=== PATIENT | male | born 1975 | race Caucasian/White ===

== ENCOUNTER 2019-04-09 20:55 | Emergency (ER) | payer OTHER ==
[~2019-04-09] VITALS: Ht 175.3 cm; Wt 68.0 kg
[~2019-04-09 20:55] MED LIST: ACET325 PO; ACET500 PO; ACID REDUCER 1150 MG; AMOX500 PO; Amoxicillin500 MG PO; CEPH500 PO; CLAR500 PO; CRUTCH4 UD; CYCL10 PO; DIAZ10 PO; Desyrel50 MG; GABA100; HYDACE10 PO; HYDACE10B; HYDACE10B PO; HYDACE5 PO; HYDACE5325 PO; HYDACE7.5 PO; HYDMOR2 PO; HYDPAM50 PO; HYDR1TAB94 PO; IBUP100S; IBUP600 PO; KETO10 PO; LORA2 PO; META800 PO; NAPR500 PO; Norco 5-325 Ta1 EACH PO; OMEP40CA12 PO; ONDA4ODT MM; OXYACE5T PO; PENVK500 PO; PRED20 PO; PROACE100 PO; PROC10 PO; PROM25 PO; PROM25S PR; Pepcid40 MG PO; TOBDEXOPO OP; TOBR.3OPSO OP; TRAM50 PO; Zofran Odt4 MG SL; Zofran Odt8 MG SL
[2019-04-09 21:50] LABS: BASOPHILS ABSOLUTE AUTO 0.05 K/mm3 (0.00-0.23); BASOPHILS PERCENT AUTO 0 % (0-2); EOSINOPHILS ABSOLUTE AUTO 0.06 K/mm3 (0.00-0.68); EOSINOPHILS PERCENT AUTO 0 % (0-6); Hematocrit 52.4 % (37.0-53.0); Hemoglobin 17.8 g/dL (13.5-17.5); IMMATURE GRAN ABSOLUTE AUTO 0.05 K/mm3 (0.00-0.10); IMMATURE GRAN PERCENT AUTO 0 % (0-1); LYMPHOCYTES ABSOLUTE AUTO 2.32 K/mm3 (0.84-5.20); LYMPHOCYTES PERCENT AUTO 14 % (21-46); MONOCYTES ABSOLUTE AUTO 0.82 K/mm3 (0.16-1.47); MONOCYTES PERCENT AUTO 5 % (4-13); Mean Corpuscular HGB 31.2 pg (26.0-34.0); Mean Corpuscular Volume 92 fL (80-100); Mean Platelet Volume 9.5 fL (9.1-12.4); NEUTROPHILS ABSOLUTE AUTO 13.43 K/mm3 (1.96-9.15); NEUTROPHILS PERCENT AUTO 80 % (41-73); Platelet Count 409 K/mm3 (150-400); RDW Coefficient Variation 13.1 % (11.7-14.2); RDW Standard Deviation 44.4 fL (35.1-46.3); White Blood Cell Count 16.73 K/mm3 (4.00-11.30)
[2019-04-09 22:12] LABS: Alanine Aminotransfer (ALT/SGP 37 U/L (12-78); Albumin, Blood 4.3 g/dL (3.4-5.0); Albumin/Globulin Ratio 1.2 (0.8-1.8); Alk Phos 95 U/L (50-136); Anion Gap 6 mmol/L (6-16); Aspartate Aminotrans (AST/SGOT 26 U/L (12-37); Bilirubin, Total 0.7 mg/dL (0.1-1.0); Blood Urea Nitrogen 13 mg/dL (8-24); Bun/Creatinine Ratio 14.4 (12.0-20.0); CO2, Blood 33 mmol/L (21-32); Calcium, Blood 9.9 mg/dL (8.5-10.1); Chloride, Blood 100 mmol/L (98-108); Globulin, Blood 3.6 g/dL (2.2-4.0); Glomerular Filtration Rate >60 (60-); Glucose, Blood 111 mg/dL (70-99); Potassium, Blood 3.6 mmol/L (3.5-5.5); Sodium, Blood 139 mmol/L (136-145); Total Protein, Blood 7.9 g/dL (6.4-8.2)
[2019-04-10] MEDS ORDERED: Carafate1 GM/10 ML PO (04:45)
[2019-04-10] MEDS ORDERED: ONDA4ODT MM (04:45)
[2019-04-10] MEDS ORDERED: Prilosec Otc20 MG PO (04:45)
== END 2019-04-10 06:12 | disposition home or self-care (01) ==
LOC: ER 20:55
PROVIDERS: Physician Assistant
DX: R10.9 Unspecified abdominal pain (principal); R11.2 Nausea with vomiting, unspecified; F17.210 Nicotine dependence, cigarettes, uncomplicated; Z88.6 Allergy status to analgesic agent
CPT/HCPCS: 71046; 74177; 80053; 83690; 85025; 86850; 86900; 86901; 96361-59; 96374-59; 96375-59; 99284-25; C9113; J1200; J2405; J2765; J7030; Q9967

== ENCOUNTER 2019-04-15 09:07 | Emergency (ER) | payer OTHER ==
[~2019-04-15] VITALS: Ht 175.3 cm; Wt 74.8 kg
[~2019-04-15 09:07] MED LIST changes: +Carafate1 GM/10 ML PO; +Prilosec Otc20 MG PO
[2019-04-15 10:27] LABS: Source, Urine Clean Catch
[2019-04-15 10:29] LABS: Appearance, Urine Clear (Clear); Bilirubin, Urine Neg (Neg); Blood, Urine Neg (Neg); Color, Urine Yellow (P-Yellow); Glucose Qualitative, Urine Neg (Neg); Ketones, Urine Neg (Neg); Leukocyte Esterase, Urine Neg (Neg); Nitrite, Urine Neg (Neg); Protein, Urine 1+ (Neg); Urobilinogen, Urine NORM (Normal)
[2019-04-15 11:16] LABS: BASOPHILS ABSOLUTE AUTO 0.07 K/mm3 (0.00-0.23); BASOPHILS PERCENT AUTO 0 % (0-2); EOSINOPHILS ABSOLUTE AUTO 0.13 K/mm3 (0.00-0.68); EOSINOPHILS PERCENT AUTO 1 % (0-6); IMMATURE GRAN ABSOLUTE AUTO 0.04 K/mm3 (0.00-0.10); IMMATURE GRAN PERCENT AUTO 0 % (0-1); LYMPHOCYTES ABSOLUTE AUTO 2.13 K/mm3 (0.84-5.20); LYMPHOCYTES PERCENT AUTO 13 % (21-46); MONOCYTES ABSOLUTE AUTO 0.91 K/mm3 (0.16-1.47); MONOCYTES PERCENT AUTO 6 % (4-13); Mean Corpuscular HGB 30.7 pg (26.0-34.0); Mean Corpuscular Volume 90 fL (80-100); NEUTROPHILS ABSOLUTE AUTO 13.01 K/mm3 (1.96-9.15); NEUTROPHILS PERCENT AUTO 80 % (41-73); Platelet Count 351 K/mm3 (150-400); RDW Coefficient Variation 13.1 % (11.7-14.2); RDW Standard Deviation 43.8 fL (35.1-46.3); Red Blood Cell Count 5.53 M/mm3 (4.30-5.90); White Blood Cell Count 16.29 K/mm3 (4.00-11.30)
[2019-04-15 11:30] LABS: Alanine Aminotransfer (ALT/SGP 43 U/L (12-78); Albumin, Blood 4.1 g/dL (3.4-5.0); Albumin/Globulin Ratio 1.1 (0.8-1.8); Alk Phos 94 U/L (50-136); Anion Gap 3 mmol/L (6-16); Aspartate Aminotrans (AST/SGOT 35 U/L (12-37); Bilirubin, Total 0.7 mg/dL (0.1-1.0); Blood Urea Nitrogen 13 mg/dL (8-24); Bun/Creatinine Ratio 17.8 (12.0-20.0); CO2, Blood 33 mmol/L (21-32); Calcium, Blood 9.7 mg/dL (8.5-10.1); Chloride, Blood 104 mmol/L (98-108); Creatinine, Blood 0.73 mg/dL (0.60-1.20); Globulin, Blood 3.8 g/dL (2.2-4.0); Glomerular Filtration Rate >60 (60-); Glucose, Blood 75 mg/dL (70-99); Potassium, Blood 4.2 mmol/L (3.5-5.5); Sodium, Blood 140 mmol/L (136-145); Total Protein, Blood 7.9 g/dL (6.4-8.2)
== END 2019-04-15 13:00 | disposition home or self-care (01) ==
LOC: ER 09:07
PROVIDERS: Emergency Medicine
DX: K27.9 Peptic ulcer, site unspecified, unspecified as acute or chronic, without hemorrhage or perforation (principal); F17.210 Nicotine dependence, cigarettes, uncomplicated; Z88.5 Allergy status to narcotic agent; Z79.899 Other long term (current) drug therapy
CPT/HCPCS: 36415; 74018; 80053; 83690; 85025; 96361; 96374; 96375; 99284-25; C9113; J1170; J2405; J7120

== ENCOUNTER 2019-10-03 17:19 | Emergency (ER) | payer OTHER ==
[~2019-10-03] VITALS: Ht 175.3 cm; Wt 74.8 kg
[2019-10-03 17:52] LABS: BASOPHILS ABSOLUTE AUTO 0.04 K/mm3 (0.00-0.23); BASOPHILS PERCENT AUTO 0 % (0-2); EOSINOPHILS ABSOLUTE AUTO 0.11 K/mm3 (0.00-0.68); EOSINOPHILS PERCENT AUTO 1 % (0-6); Hematocrit 49.3 % (37.0-53.0); Hemoglobin 16.4 g/dL (13.5-17.5); IMMATURE GRAN ABSOLUTE AUTO 0.01 K/mm3 (0.00-0.10); IMMATURE GRAN PERCENT AUTO 0 % (0-1); LYMPHOCYTES ABSOLUTE AUTO 2.08 K/mm3 (0.84-5.20); LYMPHOCYTES PERCENT AUTO 22 % (21-46); MONOCYTES ABSOLUTE AUTO 0.56 K/mm3 (0.16-1.47); MONOCYTES PERCENT AUTO 6 % (4-13); Mean Corpuscular HGB 30.2 pg (26.0-34.0); Mean Corpuscular HGB Conc 33.3 g/dL (31.5-36.5); Mean Corpuscular Volume 91 fL (80-100); Mean Platelet Volume 9.7 fL (9.1-12.4); NEUTROPHILS ABSOLUTE AUTO 6.62 K/mm3 (1.96-9.15); NEUTROPHILS PERCENT AUTO 70 % (41-73); Platelet Count 338 K/mm3 (150-400); RDW Standard Deviation 43.5 fL (35.1-46.3); Red Blood Cell Count 5.43 M/mm3 (4.30-5.90); White Blood Cell Count 9.42 K/mm3 (4.00-11.30)
[2019-10-03 18:04] LABS: Anion Gap 7 mmol/L (6-16); Blood Urea Nitrogen 12 mg/dL (8-24); Bun/Creatinine Ratio 13.9 (12.0-20.0); CO2, Blood 23 mmol/L (21-32); Calcium, Blood 8.4 mg/dL (8.5-10.1); Chloride, Blood 108 mmol/L (98-108); Creatinine, Blood 0.87 mg/dL (0.60-1.20); Glomerular Filtration Rate >60 (60-); Glucose, Blood 113 mg/dL (70-99); Potassium, Blood 3.4 mmol/L (3.5-5.5); Sodium, Blood 138 mmol/L (136-145); Troponin I <0.015 ng/mL (0.000-0.040)
[2019-10-03] MEDS ORDERED: Ventolin/Prove6.7 GM INH (18:36)
[2019-10-03] MEDS ORDERED: BENZ100A PO (18:36)
[2019-10-03] MEDS ORDERED: Prednisone20 MG PO (18:36)
== END 2019-10-03 19:41 | disposition home or self-care (01) ==
LOC: ER 17:19
PROVIDERS: Physician Assistant
DX: J40 Bronchitis, not specified as acute or chronic (principal); J06.9 Acute upper respiratory infection, unspecified; F17.210 Nicotine dependence, cigarettes, uncomplicated; Z88.5 Allergy status to narcotic agent; Z79.899 Other long term (current) drug therapy
CPT/HCPCS: 36415; 71046; 80048; 84484; 85025; 93005; 93010; 94640; 96374; 99284-25; J2930; J7030; J7512

== ENCOUNTER 2019-10-18 18:25 | Emergency (ER) | payer OTHER ==
[~2019-10-18] VITALS: Ht 175.3 cm; Wt 74.8 kg
[~2019-10-18 18:25] MED LIST changes: +BENZ100A PO; +Prednisone20 MG PO; +Ventolin/Prove6.7 GM INH
[2019-10-18 19:15] LABS: BASOPHILS ABSOLUTE AUTO 0.03 K/mm3 (0.00-0.23); BASOPHILS PERCENT AUTO 0 % (0-2); EOSINOPHILS ABSOLUTE AUTO 0.11 K/mm3 (0.00-0.68); EOSINOPHILS PERCENT AUTO 1 % (0-6); Hematocrit 49.5 % (37.0-53.0); Hemoglobin 16.9 g/dL (13.5-17.5); IMMATURE GRAN ABSOLUTE AUTO 0.07 K/mm3 (0.00-0.10); IMMATURE GRAN PERCENT AUTO 0 % (0-1); LYMPHOCYTES ABSOLUTE AUTO 2.47 K/mm3 (0.84-5.20); LYMPHOCYTES PERCENT AUTO 15 % (21-46); MONOCYTES ABSOLUTE AUTO 0.77 K/mm3 (0.16-1.47); MONOCYTES PERCENT AUTO 5 % (4-13); Mean Corpuscular HGB Conc 34.1 g/dL (31.5-36.5); Mean Corpuscular Volume 91 fL (80-100); Mean Platelet Volume 9.8 fL (9.1-12.4); NEUTROPHILS ABSOLUTE AUTO 12.61 K/mm3 (1.96-9.15); NEUTROPHILS PERCENT AUTO 79 % (41-73); Platelet Count 410 K/mm3 (150-400); RDW Standard Deviation 43.7 fL (35.1-46.3); Red Blood Cell Count 5.45 M/mm3 (4.30-5.90); White Blood Cell Count 16.06 K/mm3 (4.00-11.30)
[2019-10-18 19:40] LABS: Alanine Aminotransfer (ALT/SGP 32 U/L (12-78); Albumin, Blood 3.7 g/dL (3.4-5.0); Albumin/Globulin Ratio 0.9 (0.8-1.8); Alk Phos 91 U/L (50-136); Anion Gap 6 mmol/L (6-16); Aspartate Aminotrans (AST/SGOT 16 U/L (12-37); Bilirubin, Total 0.8 mg/dL (0.1-1.0); Blood Urea Nitrogen 10 mg/dL (8-24); Bun/Creatinine Ratio 13.2 (12.0-20.0); CO2, Blood 26 mmol/L (21-32); Calcium, Blood 9.3 mg/dL (8.5-10.1); Chloride, Blood 106 mmol/L (98-108); Creatinine, Blood 0.76 mg/dL (0.60-1.20); Globulin, Blood 4.1 g/dL (2.2-4.0); Glomerular Filtration Rate >60 (60-); Glucose, Blood 92 mg/dL (70-99); Sodium, Blood 138 mmol/L (136-145); Total Protein, Blood 7.8 g/dL (6.4-8.2)
[2019-10-18 19:50] LABS: Troponin I <0.015 ng/mL (0.000-0.040)
[2019-10-18] MEDS ORDERED: PRED10 PO (21:13)
== END 2019-10-18 21:59 | disposition home or self-care (01) ==
LOC: ER 18:25
PROVIDERS: Physician Assistant
DX: J45.901 Unspecified asthma with (acute) exacerbation (principal); K27.9 Peptic ulcer, site unspecified, unspecified as acute or chronic, without hemorrhage or perforation; F17.210 Nicotine dependence, cigarettes, uncomplicated
CPT/HCPCS: 36415; 71046; 80053; 84484; 85025; 93005; 93010; 94640; 96374-59; 99285-25; J2930

== ENCOUNTER 2020-05-30 16:23 | Emergency (ER) | payer OTHER ==
[~2020-05-30] VITALS: Ht 175.3 cm; Wt 77.1 kg
[~2020-05-30 16:23] MED LIST changes: +PRED10 PO
[2020-05-30] MEDS ORDERED: HYDR1TAB94 PO (18:56)
[2020-05-30] MEDS ORDERED: Colace250 MG PO (18:56)
[2020-05-31] MEDS ORDERED: HYDR1TAB94 PO (09:50)
== END 2020-05-30 19:11 | disposition home or self-care (01) ==
LOC: ER 16:23
DX: S63.501A Unspecified sprain of right wrist, initial encounter (principal); F17.210 Nicotine dependence, cigarettes, uncomplicated; Z79.899 Other long term (current) drug therapy; W20.8XXA Other cause of strike by thrown, projected or falling object, initial encounter
CPT/HCPCS: 29125; 73110; 73120; 99283-25; A9270-GY

== ENCOUNTER 2021-02-25 20:55 | Emergency (ER) | payer OTHER ==
[~2021-02-25] VITALS: Ht 175.3 cm; Wt 77.1 kg
[~2021-02-25 20:55] MED LIST changes: +Colace250 MG PO
[2021-02-25 21:55] LABS: BASOPHILS ABSOLUTE AUTO 0.05 K/mm3 (0.00-0.23); BASOPHILS PERCENT AUTO 1 % (0-2); EOSINOPHILS ABSOLUTE AUTO 0.05 K/mm3 (0.00-0.68); EOSINOPHILS PERCENT AUTO 1 % (0-6); Hematocrit 54.7 % (37.0-53.0); Hemoglobin 18.8 g/dL (13.5-17.5); IMMATURE GRAN ABSOLUTE AUTO 0.01 K/mm3 (0.00-0.10); IMMATURE GRAN PERCENT AUTO 0 % (0-1); LYMPHOCYTES ABSOLUTE AUTO 2.31 K/mm3 (0.84-5.20); LYMPHOCYTES PERCENT AUTO 30 % (21-46); MONOCYTES PERCENT AUTO 10 % (4-13); Mean Corpuscular HGB 30.4 pg (26.0-34.0); Mean Corpuscular HGB Conc 34.4 g/dL (31.5-36.5); Mean Corpuscular Volume 89 fL (80-100); Mean Platelet Volume 9.8 fL (9.1-12.4); NEUTROPHILS ABSOLUTE AUTO 4.45 K/mm3 (1.96-9.15); NEUTROPHILS PERCENT AUTO 58 % (41-73); Platelet Count 304 K/mm3 (150-400); RDW Standard Deviation 42.4 fL (35.1-46.3); Red Blood Cell Count 6.18 M/mm3 (4.30-5.90); White Blood Cell Count 7.67 K/mm3 (4.00-11.30)
[2021-02-25 22:15] LABS: Alanine Aminotransfer (ALT/SGP 36 U/L (12-78); Albumin, Blood 3.7 g/dL (3.4-5.0); Albumin/Globulin Ratio 0.9 (0.8-1.8); Alk Phos 106 U/L (50-136); Anion Gap 4 mmol/L (6-16); Aspartate Aminotrans (AST/SGOT 17 U/L (12-37); Bilirubin, Total 0.3 mg/dL (0.1-1.0); Blood Urea Nitrogen 13 mg/dL (8-24); Bun/Creatinine Ratio 12.3 (12.0-20.0); CO2, Blood 32 mmol/L (21-32); Calcium, Blood 9.1 mg/dL (8.5-10.1); Chloride, Blood 99 mmol/L (98-108); Creatinine, Blood 1.06 mg/dL (0.60-1.20); Globulin, Blood 4.1 g/dL (2.2-4.0); Glomerular Filtration Rate >60 (60-); Glucose, Blood 109 mg/dL (70-99); Potassium, Blood 3.6 mmol/L (3.5-5.5); Sodium, Blood 135 mmol/L (136-145); Total Protein, Blood 7.8 g/dL (6.4-8.2)
[2021-02-25] MEDS ORDERED: Protonix40 MG PO (22:36)
== END 2021-02-25 22:41 | disposition home or self-care (01) ==
LOC: ER 20:55
PROVIDERS: Physician Assistant
DX: R10.13 Epigastric pain (principal); Z88.5 Allergy status to narcotic agent
CPT/HCPCS: 36415; 80053; 83690; 85025; 96374; 99284-25; A9270; C9113

== ENCOUNTER 2022-01-16 15:34 | Emergency (ER) | payer OTHER ==
[~2022-01-16] VITALS: Ht 180.3 cm; Wt 77.1 kg
[~2022-01-16 15:34] MED LIST changes: +Protonix40 MG PO
[2022-01-16 16:11] LABS: BASOPHILS ABSOLUTE AUTO 0.07 K/mm3 (0.00-0.23); BASOPHILS PERCENT AUTO 1 % (0-2); EOSINOPHILS ABSOLUTE AUTO 0.14 K/mm3 (0.00-0.68); EOSINOPHILS PERCENT AUTO 1 % (0-6); Hematocrit 50.5 % (37.0-53.0); Hemoglobin 16.9 g/dL (13.5-17.5); IMMATURE GRAN ABSOLUTE AUTO 0.05 K/mm3 (0.00-0.10); IMMATURE GRAN PERCENT AUTO 0 % (0-1); LYMPHOCYTES ABSOLUTE AUTO 2.09 K/mm3 (0.84-5.20); LYMPHOCYTES PERCENT AUTO 15 % (21-46); MONOCYTES ABSOLUTE AUTO 0.75 K/mm3 (0.16-1.47); MONOCYTES PERCENT AUTO 5 % (4-13); Mean Corpuscular HGB 30.2 pg (26.0-34.0); Mean Corpuscular HGB Conc 33.5 g/dL (31.5-36.5); Mean Corpuscular Volume 90 fL (80-100); Mean Platelet Volume 9.4 fL (9.1-12.4); NEUTROPHILS ABSOLUTE AUTO 10.75 K/mm3 (1.96-9.15); NEUTROPHILS PERCENT AUTO 78 % (41-73); Platelet Count 418 K/mm3 (150-400); RDW Coefficient Variation 13.8 % (11.7-14.2); RDW Standard Deviation 46.3 fL (35.1-46.3); White Blood Cell Count 13.85 K/mm3 (4.00-11.30)
[2022-01-16 16:35] LABS: Alanine Aminotransfer (ALT/SGP 29 U/L (12-78); Albumin, Blood 3.7 g/dL (3.4-5.0); Alk Phos 108 U/L (50-136); Anion Gap 4 mmol/L (6-16); Aspartate Aminotrans (AST/SGOT 16 U/L (12-37); Bilirubin, Total 0.4 mg/dL (0.1-1.0); Blood Urea Nitrogen 14 mg/dL (8-24); Bun/Creatinine Ratio 17.2 (12.0-20.0); CO2, Blood 27 mmol/L (21-32); Calcium, Blood 9.5 mg/dL (8.5-10.1); Chloride, Blood 104 mmol/L (98-108); Creatinine, Blood 0.82 mg/dL (0.60-1.20); Globulin, Blood 3.7 g/dL (2.2-4.0); Glomerular Filtration Rate >60 (60-); Glucose, Blood 151 mg/dL (70-99); Potassium, Blood 4.1 mmol/L (3.5-5.5); Sodium, Blood 135 mmol/L (136-145); Total Protein, Blood 7.4 g/dL (6.4-8.2)
== END 2022-01-16 16:15 | disposition left against medical advice (07) ==
LOC: ER 15:34
PROVIDERS: Physician Assistant
DX: R10.13 Epigastric pain (principal); Z53.21 Procedure and treatment not carried out due to patient leaving prior to being seen by health care provider
CPT/HCPCS: 36415; 80053; 83690; 85025; 99283; A9270

== ENCOUNTER 2022-06-13 18:11 | Emergency (ER) | payer OTHER ==
[~2022-06-13] VITALS: Ht 175.3 cm; Wt 79.4 kg
[2022-06-13 19:45] LABS: Calcium, Ionized (POC) 1.19 mmol/L (1.10-1.46); Chloride (POC) 104 mmol/L (98-108); Creatinine (POC) 0.7 mg/dL (0.8-1.3); Glucose (ISTAT POC) 96 mg/dL (70-99); Hemoglobin (POC) 13.6 g/dL (13.5-17.5); Sodium (POC) 140 mmol/L (135-148); Total CO2 (POC) 24 mmol/L (21-32)
[2022-06-13] MEDS ORDERED: DOXY100 PO (19:46)
== END 2022-06-13 19:56 | disposition home or self-care (01) ==
LOC: ER 18:11
PROVIDERS: Emergency Medicine
DX: F15.10 Other stimulant abuse, uncomplicated (principal); L08.9 Local infection of the skin and subcutaneous tissue, unspecified; F17.210 Nicotine dependence, cigarettes, uncomplicated; Z79.899 Other long term (current) drug therapy
CPT/HCPCS: 80047; 85014; 99284; A9270

== ENCOUNTER 2022-12-21 13:17 | Emergency (ER) | payer OTHER ==
[~2022-12-21] VITALS: Ht 175.3 cm; Wt 77.1 kg
[~2022-12-21 13:17] MED LIST changes: +DOXY100 PO; +PANT20 PO
[2022-12-21] MEDS ORDERED: LIDOCAINE1 EACH TOP (15:47)
[2022-12-21] MEDS ORDERED: Robaxin750 MG PO (15:48)
[2022-12-21] MEDS ORDERED: HYDR1TAB94 PO (15:48)
== END 2022-12-21 16:11 | disposition home or self-care (01) ==
LOC: ER 13:17
DX: M79.652 Pain in left thigh (principal); V13.4XXA Pedal cycle driver injured in collision with car, pick-up truck or van in traffic accident, initial encounter; J45.909 Unspecified asthma, uncomplicated; F17.210 Nicotine dependence, cigarettes, uncomplicated; Z79.899 Other long term (current) drug therapy; Z88.5 Allergy status to narcotic agent
CPT/HCPCS: 72170; 73552; A9270

== ENCOUNTER 2023-01-25 04:58 | Emergency (ER) | payer OTHER ==
[~2023-01-25] VITALS: Ht 175.3 cm; Wt 77.1 kg
[~2023-01-25 04:58] MED LIST changes: +LIDOCAINE1 EACH TOP; +Robaxin750 MG PO
[2023-01-25 05:47] LABS: BASOPHILS ABSOLUTE AUTO 0.06 K/mm3 (0.00-0.23); BASOPHILS PERCENT AUTO 0 % (0-2); EOSINOPHILS ABSOLUTE AUTO 0.11 K/mm3 (0.00-0.68); EOSINOPHILS PERCENT AUTO 1 % (0-6); Hematocrit 48.1 % (37.0-53.0); Hemoglobin 16.4 g/dL (13.5-17.5); IMMATURE GRAN ABSOLUTE AUTO 0.03 K/mm3 (0.00-0.10); IMMATURE GRAN PERCENT AUTO 0 % (0-1); LYMPHOCYTES ABSOLUTE AUTO 2.94 K/mm3 (0.84-5.20); LYMPHOCYTES PERCENT AUTO 21 % (21-46); MONOCYTES ABSOLUTE AUTO 0.68 K/mm3 (0.16-1.47); MONOCYTES PERCENT AUTO 5 % (4-13); Mean Corpuscular HGB 30.2 pg (26.0-34.0); Mean Corpuscular HGB Conc 34.1 g/dL (31.5-36.5); Mean Corpuscular Volume 89 fL (80-100); Mean Platelet Volume 9.5 fL (9.1-12.4); NEUTROPHILS ABSOLUTE AUTO 10.24 K/mm3 (1.96-9.15); NEUTROPHILS PERCENT AUTO 73 % (41-73); Platelet Count 435 K/mm3 (150-400); RDW Coefficient Variation 13.7 % (11.7-14.2); RDW Standard Deviation 44.5 fL (35.1-46.3); Red Blood Cell Count 5.43 M/mm3 (4.30-5.90); White Blood Cell Count 14.06 K/mm3 (4.00-11.30)
[2023-01-25 06:03] LABS: Albumin, Blood 3.7 g/dL (3.4-5.0); Albumin/Globulin Ratio 0.9 (0.8-1.8); Bilirubin, Total 0.6 mg/dL (0.1-1.0); Bun/Creatinine Ratio 19.4 (12.0-20.0); Calcium, Blood 9.2 mg/dL (8.5-10.1); Creatinine, Blood 0.88 mg/dL (0.60-1.20); Potassium, Blood 3.9 mmol/L (3.5-5.5); Total Protein, Blood 7.7 g/dL (6.4-8.2)
[2023-01-25] MEDS ORDERED: PANT20 PO (08:40)
[2023-01-25] MEDS ORDERED: DICY20 PO (08:40)
[2023-01-25] MEDS ORDERED: ALMACONE SUSPE355 ML PO (08:40)
[2023-01-25] MEDS ORDERED: ONDA4ODT MM (08:40)
[2023-01-25 08:45] VITALS: BP 107/75
[2023-01-26] MEDS ORDERED: Methocarbamol500 MG PO (21:14)
[2023-01-26] MEDS ORDERED: LIDOCAINE1 EACH TOP (21:14)
[2023-01-26] MEDS ORDERED: HYDROCODONE-AC1 EA19 PO (21:15)
== END 2023-01-25 08:54 | disposition home or self-care (01) ==
LOC: ER 04:58
PROVIDERS: Student in an Organized Health Care Education/Training Program
DX: R10.13 Epigastric pain (principal); R11.2 Nausea with vomiting, unspecified; Z88.5 Allergy status to narcotic agent; Z79.899 Other long term (current) drug therapy; J45.909 Unspecified asthma, uncomplicated; F17.210 Nicotine dependence, cigarettes, uncomplicated
CPT/HCPCS: 74177; 80053; 83690; 85025; 93005; 93010; 96374-59; 96375; 99284-25; A9270; J1790; J1885; Q9967

== ENCOUNTER 2023-01-26 16:37 | Observation (INO) | payer OTHER ==
[~2023-01-26] VITALS: Ht 175.3 cm; Wt 73.4 kg
[~2023-01-26 16:37] MED LIST changes: +ALMACONE SUSPE355 ML PO; +DICY20 PO
[2023-01-26 17:06] LABS: BASOPHILS ABSOLUTE AUTO 0.08 K/mm3 (0.00-0.23); BASOPHILS PERCENT AUTO 0 % (0-2); EOSINOPHILS ABSOLUTE AUTO 0.06 K/mm3 (0.00-0.68); EOSINOPHILS PERCENT AUTO 0 % (0-6); Hematocrit 54.6 % (37.0-53.0); Hemoglobin 18.3 g/dL (13.5-17.5); IMMATURE GRAN ABSOLUTE AUTO 0.04 K/mm3 (0.00-0.10); IMMATURE GRAN PERCENT AUTO 0 % (0-1); LYMPHOCYTES ABSOLUTE AUTO 2.75 K/mm3 (0.84-5.20); LYMPHOCYTES PERCENT AUTO 14 % (21-46); MONOCYTES ABSOLUTE AUTO 1.08 K/mm3 (0.16-1.47); MONOCYTES PERCENT AUTO 6 % (4-13); Mean Corpuscular HGB Conc 33.5 g/dL (31.5-36.5); Mean Corpuscular Volume 89 fL (80-100); Mean Platelet Volume 9.5 fL (9.1-12.4); NEUTROPHILS ABSOLUTE AUTO 15.14 K/mm3 (1.96-9.15); NEUTROPHILS PERCENT AUTO 79 % (41-73); Platelet Count 475 K/mm3 (150-400); RDW Coefficient Variation 13.4 % (11.7-14.2); RDW Standard Deviation 43.9 fL (35.1-46.3); Red Blood Cell Count 6.11 M/mm3 (4.30-5.90); White Blood Cell Count 19.15 K/mm3 (4.00-11.30)
[2023-01-26 17:21] LABS: Albumin/Globulin Ratio 0.9 (0.8-1.8); Bilirubin, Total 0.7 mg/dL (0.1-1.0); Bun/Creatinine Ratio 16.8 (12.0-20.0); Creatinine, Blood 1.01 mg/dL (0.60-1.20); Globulin, Blood 4.7 g/dL (2.2-4.0); Potassium, Blood 4.2 mmol/L (3.5-5.5); Total Protein, Blood 8.7 g/dL (6.4-8.2)
[2023-01-26] MEDS ORDERED: Methocarbamol500 MG PO (21:14)
[2023-01-26] MEDS ORDERED: LIDOCAINE1 EACH TOP (21:14)
[2023-01-26] MEDS ORDERED: HYDROCODONE-AC1 EA19 PO (21:15)
[2023-01-26 21:52] LABS: Source, Urine Clean Catch
[2023-01-26 21:57] LABS: Bilirubin, Urine Neg (Neg); Blood, Urine Neg (Neg); Glucose Qualitative, Urine Neg (Neg); Ketones, Urine Neg (Neg); Leukocyte Esterase, Urine Neg (Neg); Nitrite, Urine Neg (Neg); Protein, Urine 2+ (Neg); Urobilinogen, Urine NORM (Normal)
[2023-01-26 22:02] LABS: Appearance, Urine Clear (Clear); Color, Urine Yellow (P-Yellow)
[2023-01-26 22:03] VITALS: BP 148/87
[2023-01-26 22:10] LABS: Amorphous Light (0-Heavy); Bacteria Not Seen /hpf; Red Blood Cells, Urine Not Seen /hpf (0-2); Squamous Epithelial Cells Not Seen /hpf (Few); White Blood Cells, Urine 0-2 /hpf (0-5)
[2023-01-26 22:12] LABS: U Amphetamine Screen Not Detected; U Barbituate Screen Not Detected; U Benzodiazapine Screen Not Detected; U Buprenorphine Screen Not Detected; U Cannabinoids Screen Not Detected; U Cocaine Screen Not Detected; U Methadone Screen Not Detected; U Methamphetamine Screen Not Detected; U Opiates Screen Not Detected; U Oxycodone Screen Not Detected; U Phencyclidine Screen Not Detected; U Propoxyphene Screen Not Detected
[2023-01-27 02:37] VITALS: BP 133/90
--- NOTE | 2023-01-27 04:30 | NUR ---
T/F AND SUMMARY: REPORT RECIEVED FROM DONALD SALES [employer]ANCH MANAGER AT 2140 AND PT T/F TO ROOM 301 VIA PETRA AT 2200. PT A/OX4, WAS ORIENTED TO ROOM AND CALL SYSTEM AND IS INDEPENDENT IN ROOM. HE REMAINED IN BED MAJORITY OF SHIFT D/T "JUST NOT FEELING WELL" R/T ABDO PAIN/BURNING. HE TOLERATED CLEAR LIQUID DIET IN MODERATION AND WAS MEDICATED PRN W/ZOFRAN, MAALOX AND NORCO FOR ADEQUATE PAIN AND NAUSEA RELIEF. NEW IV WAS PLACED TO JOSHUA AND NS COMMENCED AT 125 ML/HR. PT IS DAILY SMOKER AND NICTINE PATCH WAS RX'D AND APPLIED. UA W/URINE TOX WAS COLLECTED IN ER AND WAS NEGATIVE. NO ACUTE CHANGES, VSS/AFEBRILE. WCTM AND REPORT TO DAY RN.
[2023-01-27 04:53] LABS: BASOPHILS ABSOLUTE AUTO 0.06 K/mm3 (0.00-0.23); BASOPHILS PERCENT AUTO 1 % (0-2); EOSINOPHILS ABSOLUTE AUTO 0.11 K/mm3 (0.00-0.68); EOSINOPHILS PERCENT AUTO 1 % (0-6); Hematocrit 45.6 % (37.0-53.0); Hemoglobin 15.2 g/dL (13.5-17.5); IMMATURE GRAN ABSOLUTE AUTO 0.03 K/mm3 (0.00-0.10); IMMATURE GRAN PERCENT AUTO 0 % (0-1); LYMPHOCYTES ABSOLUTE AUTO 2.86 K/mm3 (0.84-5.20); LYMPHOCYTES PERCENT AUTO 23 % (21-46); MONOCYTES ABSOLUTE AUTO 0.73 K/mm3 (0.16-1.47); MONOCYTES PERCENT AUTO 6 % (4-13); Mean Corpuscular HGB 30.2 pg (26.0-34.0); Mean Corpuscular HGB Conc 33.3 g/dL (31.5-36.5); Mean Corpuscular Volume 91 fL (80-100); Mean Platelet Volume 9.9 fL (9.1-12.4); NEUTROPHILS ABSOLUTE AUTO 8.59 K/mm3 (1.96-9.15); NEUTROPHILS PERCENT AUTO 69 % (41-73); Platelet Count 362 K/mm3 (150-400); RDW Coefficient Variation 13.4 % (11.7-14.2); RDW Standard Deviation 45.2 fL (35.1-46.3); Red Blood Cell Count 5.04 M/mm3 (4.30-5.90); White Blood Cell Count 12.38 K/mm3 (4.00-11.30)
[2023-01-27 05:12] LABS: Bun/Creatinine Ratio 16.3 (12.0-20.0); Calcium, Blood 8.5 mg/dL (8.5-10.1); Creatinine, Blood 0.92 mg/dL (0.60-1.20); Magnesium, Blood 2.1 mg/dL (1.6-2.4); Potassium, Blood 3.8 mmol/L (3.5-5.5)
[2023-01-27 07:27] VITALS: BP 129/77
[2023-01-27] MEDS ORDERED: ONDA4ODT PO (10:56)
[2023-01-27] MEDS ORDERED: PANT40 PO (10:56)
--- NOTE | 2023-01-27 12:09 | NUR ---
DISCHARGE SUMMARY: PT DISCHARGED TODAY TO HOME. PT EDUCATED ON DISCHARGE INSTRUCTIONS AND MEDICATIONS. PT VU. PT DECLINED WHEELCHAIR ESCORT. PT REPORTED HIS MOM WAS PICKING UP. PT AMBULATED TO POV, STEADY ON FEET.
== END 2023-01-27 12:07 | disposition home or self-care (01) ==
LOC: ER 16:37 → MEDS 16:38
PROVIDERS: Nurse Practitioner Acute Care; Student in an Organized Health Care Education/Training Program; ADMIT Internal Medicine
DX: K29.70 Gastritis, unspecified, without bleeding (principal); E87.3 Alkalosis; E86.0 Dehydration; E87.1 Hypo-osmolality and hyponatremia; E87.8 Other disorders of electrolyte and fluid balance, not elsewhere classified; D72.829 Elevated white blood cell count, unspecified; Z87.11 Personal history of peptic ulcer disease; J45.909 Unspecified asthma, uncomplicated; Z88.5 Allergy status to narcotic agent; Z79.899 Other long term (current) drug therapy
CPT/HCPCS: 36415; 74022; 80048; 80053; 81001; 83690; 83735; 84484; 85025; 93005; 93010; 94760; 96374; 96375; 96376; 99285-25; A9270; C9113; G0378; J2405; J2550; J7030

== ENCOUNTER 2023-07-08 11:55 | Emergency (ER) | payer OTHER ==
[~2023-07-08] VITALS: Ht 175.3 cm; Wt 81.7 kg
[~2023-07-08 11:55] MED LIST changes: +HYDROCODONE-AC1 EA19 PO; +Methocarbamol500 MG PO; +ONDA4ODT PO; +PANT40 PO
[2023-07-08 15:00] VITALS: BP 111/84
[2023-07-08] MEDS ORDERED: EPIPEN0.3 MG/0.1 IM (15:05)
[2023-07-08] MEDS ORDERED: METPRE4DP PO (15:05)
[2023-07-08] MEDS ORDERED: BENADRYL25 MG PO (15:06)
== END 2023-07-08 15:17 | disposition home or self-care (01) ==
LOC: ER 11:55
DX: T63.441A Toxic effect of venom of bees, accidental (unintentional), initial encounter (principal); F17.210 Nicotine dependence, cigarettes, uncomplicated; Z88.5 Allergy status to narcotic agent; Z91.030 Bee allergy status; Z79.899 Other long term (current) drug therapy
CPT/HCPCS: 96374; 96375; 99285-25; J2930

== ENCOUNTER 2023-08-25 00:05 | Emergency (ER) | payer OTHER ==
[~2023-08-25] VITALS: Ht 175.3 cm; Wt 79.4 kg
[~2023-08-25 00:05] MED LIST changes: +BENADRYL25 MG PO; +EPIPEN0.3 MG/0.1 IM; +METPRE4DP PO
[2023-08-25 00:30] LABS: BASOPHILS ABSOLUTE AUTO 0.06 K/mm3 (0.00-0.23); BASOPHILS PERCENT AUTO 1 % (0-2); EOSINOPHILS ABSOLUTE AUTO 0.11 K/mm3 (0.00-0.68); EOSINOPHILS PERCENT AUTO 1 % (0-6); Hematocrit 51.4 % (37.0-53.0); Hemoglobin 17.1 g/dL (13.5-17.5); IMMATURE GRAN ABSOLUTE AUTO 0.03 K/mm3 (0.00-0.10); IMMATURE GRAN PERCENT AUTO 0 % (0-1); LYMPHOCYTES ABSOLUTE AUTO 3.11 K/mm3 (0.84-5.20); LYMPHOCYTES PERCENT AUTO 25 % (21-46); MONOCYTES PERCENT AUTO 7 % (4-13); Mean Corpuscular HGB 29.9 pg (26.0-34.0); Mean Corpuscular HGB Conc 33.3 g/dL (31.5-36.5); Mean Corpuscular Volume 90 fL (80-100); Mean Platelet Volume 9.5 fL (9.1-12.4); NEUTROPHILS ABSOLUTE AUTO 8.48 K/mm3 (1.96-9.15); NEUTROPHILS PERCENT AUTO 67 % (41-73); Platelet Count 381 K/mm3 (150-400); RDW Coefficient Variation 12.9 % (11.7-14.2); RDW Standard Deviation 41.9 fL (35.1-46.3); Red Blood Cell Count 5.71 M/mm3 (4.30-5.90); White Blood Cell Count 12.69 K/mm3 (4.00-11.30)
[2023-08-25 00:47] LABS: Albumin, Blood 3.7 g/dL (3.4-5.0); Albumin/Globulin Ratio 0.9 (0.8-1.8); Bilirubin, Total 0.5 mg/dL (0.1-1.0); Bun/Creatinine Ratio 8.7 (12.0-20.0); Calcium, Blood 9.2 mg/dL (8.5-10.1); Creatinine, Blood 1.15 mg/dL (0.60-1.20); Globulin, Blood 4.3 g/dL (2.2-4.0); Potassium, Blood 3.9 mmol/L (3.5-5.5)
[2023-08-25] MEDS ORDERED: ONDA4ODT MM (01:19)
[2023-08-25] MEDS ORDERED: Protonix40 MG PO (01:41)
[2023-08-25 01:43] VITALS: BP 118/75
== END 2023-08-25 01:43 | disposition home or self-care (01) ==
LOC: ER 00:05
PROVIDERS: Emergency Medicine
DX: R10.13 Epigastric pain (principal); Z87.19 Personal history of other diseases of the digestive system; R11.2 Nausea with vomiting, unspecified; J45.909 Unspecified asthma, uncomplicated; F17.210 Nicotine dependence, cigarettes, uncomplicated; Z79.899 Other long term (current) drug therapy; Z88.5 Allergy status to narcotic agent; Z91.030 Bee allergy status
CPT/HCPCS: 80053; 83690; 85025; 96374; 96375; 99284-25; C9113; J1630; J7030

== ENCOUNTER 2024-10-26 13:58 | Emergency (ER) | payer OTHER ==
[~2024-10-26] VITALS: Ht 182.9 cm; Wt 79.4 kg
[2024-10-26 14:24] VITALS: BP 121/88
[2024-10-26 15:39] LABS: BASOPHILS ABSOLUTE AUTO 0.07 K/mm3 (0.00-0.23); BASOPHILS PERCENT AUTO 0 % (0-2); EOSINOPHILS ABSOLUTE AUTO 0.03 K/mm3 (0.00-0.68); EOSINOPHILS PERCENT AUTO 0 % (0-6); Hematocrit 53.4 % (37.0-53.0); Hemoglobin 18.6 g/dL (13.5-17.5); IMMATURE GRAN ABSOLUTE AUTO 0.09 K/mm3 (0.00-0.10); IMMATURE GRAN PERCENT AUTO 0 % (0-1); LYMPHOCYTES ABSOLUTE AUTO 2.72 K/mm3 (0.84-5.20); LYMPHOCYTES PERCENT AUTO 13 % (21-46); MONOCYTES ABSOLUTE AUTO 1.16 K/mm3 (0.16-1.47); MONOCYTES PERCENT AUTO 5 % (4-13); Mean Corpuscular HGB 30.4 pg (26.0-34.0); Mean Corpuscular HGB Conc 34.8 g/dL (31.5-36.5); Mean Corpuscular Volume 87 fL (80-100); Mean Platelet Volume 9.7 fL (9.1-12.4); NEUTROPHILS PERCENT AUTO 81 % (41-73); Platelet Count 439 K/mm3 (150-400); RDW Coefficient Variation 12.8 % (11.7-14.2); RDW Standard Deviation 41.1 fL (35.1-46.3); Red Blood Cell Count 6.11 M/mm3 (4.30-5.90); White Blood Cell Count 21.47 K/mm3 (4.00-11.30)
[2024-10-26 16:00] LABS: Albumin/Globulin Ratio 0.9 (0.8-1.8); Bilirubin, Total 1.2 mg/dL (0.1-1.0); Bun/Creatinine Ratio 19.1 (12.0-20.0); Calcium, Blood 10.2 mg/dL (8.5-10.1); Creatinine, Blood 1.1 mg/dL (0.60-1.20); Globulin, Blood 4.3 g/dL (2.2-4.0); Potassium, Blood 3.6 mmol/L (3.5-5.5); Total Protein, Blood 8.3 g/dL (6.4-8.2)
[2024-10-26] MEDS ORDERED: Ondansetron HCl 2 MG / ML 2ML Vial IV ONE (18:55)
[2024-10-26] MEDS ORDERED: Mag Hydrox/AL Hydrox/Simeth 30 ML UDC PO ONE (18:55)
[2024-10-26] MEDS ORDERED: Pantoprazole Sodium 40 MG Injection IV ONE (18:55)
[2024-10-26] MEDS ORDERED: Lidocaine 2% Viscous Soln 15 ML UDC PO ONE (18:55)
== END 2024-10-26 19:20 | disposition left against medical advice (07) ==
LOC: ER 13:58
PROVIDERS: Physician Assistant
DX: R10.13 Epigastric pain (principal); F17.210 Nicotine dependence, cigarettes, uncomplicated; J45.909 Unspecified asthma, uncomplicated; Z79.899 Other long term (current) drug therapy; Z88.5 Allergy status to narcotic agent; Z91.030 Bee allergy status
CPT/HCPCS: 74177; 80053; 83690; 85025; 96374-59; 96375; 99284-25; A9270; J2405; J2470; Q9967

== ENCOUNTER 2025-01-24 09:36 | Day surgery (SDC) | payer OTHER ==
[~2025-01-24] VITALS: Ht 175.3 cm; Wt 85.0 kg
[~2025-01-24 09:36] MED LIST changes: +FentaNYL Citrate 50 MCG/ML 2 ML Injection ONE; +Midazolam HCl 1MG / ML 2ML Vial ONE; +NS 500 ML IV ONE
[2025-01-24] MEDS ORDERED: NS 500 ML IV ONE (10:14)
[2025-01-24] MEDS ORDERED: propofoL 20 ML IV ONE (10:39)
[2025-01-24] MEDS ORDERED: Midazolam HCl 1MG / ML 2ML Vial ONE (10:42)
[2025-01-24 11:06] VITALS: BP 127/80
--- NOTE | 2025-01-24 11:42 | NUR ---
01/24/25 1142 VEENA HAM PT GIRLFRIEND,TYLER IN FOR ALL OF DC INSTRUCTIONS. PT WAS VERY DROWSY BUT SHE ASSISTED HIM WITH WAKING, EATING AND DRINKING. PT STILL DROWSY AT DC BUT WAS ABLE TO UNDERSTAND QUESTIONS AND WAS JOKING WITH GIRLFRIEND. TYLER REQUESTED THAT WE JUST LET HIM GO HOME SINCE HE DIDN'T GET MUCH SLEEP LAST NIGHT AND SHE SAYS THAT SHE HAS A BED ALL READY FOR HIM AT HOME.
== END 2025-01-24 11:38 | disposition home or self-care (01) ==
LOC: ORSCSDS 09:36
PROVIDERS: Orthopaedic Surgery
PROC: 01N54ZZ Release Median Nerve, Percutaneous Endoscopic Approach (ICD-10-PCS; principal; 2025-01-24 11:00)
DX: G56.03 Carpal tunnel syndrome, bilateral upper limbs (principal); K21.9 Gastro-esophageal reflux disease without esophagitis; F17.210 Nicotine dependence, cigarettes, uncomplicated; Z79.899 Other long term (current) drug therapy
CPT/HCPCS: J2250; J2704; J3010; J7040

== ENCOUNTER 2025-04-10 16:21 | Emergency (ER) | payer OTHER ==
[~2025-04-10] VITALS: Ht 172.7 cm; Wt 83.9 kg
[~2025-04-10 16:21] MED LIST changes: -FentaNYL Citrate 50 MCG/ML 2 ML Injection ONE; -Midazolam HCl 1MG / ML 2ML Vial ONE; -NS 500 ML IV ONE
[2025-04-10] MEDS ORDERED: HYDROcodone 5-APAP 325 TAB PO ONE ×2 (16:50→20:55)
[2025-04-10] MEDS ORDERED: RX Prepack 6 Tabs Oxycodone 5mg UD ONE (22:15)
[2025-04-10] MEDS ORDERED: HYDR1TAB94 PO (22:25)
[2025-04-10 22:30] VITALS: BP 123/79
== END 2025-04-10 22:30 | disposition home or self-care (01) ==
LOC: ER 16:21
DX: S82.141A Displaced bicondylar fracture of right tibia, initial encounter for closed fracture (principal); J45.909 Unspecified asthma, uncomplicated; Z87.11 Personal history of peptic ulcer disease; F17.210 Nicotine dependence, cigarettes, uncomplicated; Z88.5 Allergy status to narcotic agent; Z91.030 Bee allergy status; Z79.899 Other long term (current) drug therapy; V86.56XA Driver of dirt bike or motor/cross bike injured in nontraffic accident, initial encounter
CPT/HCPCS: 73562-RT; 73700; 99284-25; A9270